=== PATIENT | male | born 1945 | race Caucasian/White ===

== ENCOUNTER 2016-10-26 15:57 | Emergency (ER) | payer OTHER, MEDICARE ==
[~2016-10-26] VITALS: Ht 165.1 cm; Wt 96.2 kg
[~2016-10-26 15:57] MED LIST: AMIODARONE HCL200 M1 PO; AMLODIPINE BESY10 M1 PO; AMOX-CLAV 875-1 EACH PO; ATORVASTATIN CA20 M1 PO; AZITHROMYCIN250 M1 PO; FINASTERIDE5 M1 PO; FUROSEMIDE20 M1 PO; LEVOTHYROXINE25 MCG PO; METFORMIN HCL850 M1 PO; MODAFINIL200 M1 PO; PERCOCET 7.5-31 EACH PO; TAMSULOSIN HCL0.4 M1 PO; VALSARTAN160 M1 PO; WARFARIN SODIUM2 M1 PO
--- NOTE | 2016-10-26 17:39 | ED GENERAL ADULT ---
History of Present Illness General Chief Complaint: General Adult Stated Complaint: SIB DR BEST FOR CONSTIPATION Source: patient Exam Limitations: no limitations Vital Signs & Intake/Output Vital Signs & Intake/Output Vital Signs Date Time Temp Pulse Resp B/P Pulse O2 O2 Flow FiO2 Ox Delivery Rate 10/26 2037 96.5 86 18 122/70 97 Room Air 10/26 1941 99.5 100 18 122/60 10/26 1848 99.5 100 18 122/60 97 Room Air 10/26 1655 99.7 80 18 154/95 98 Room Air Allergies Coded Allergies: Iodinated Contrast Media - Oral and (IODINATED CONTRAST MEDIA - IV DYE) ( ANAPHYLAXIS 03/29/16) Reconcile Medications Amlodipine Besylate 10 MG TABLET 1 TAB PO DAILY BP (Reported) Amoxicillin/Potassium Clav (Augmentin 875-125 Tablet) 875 MG-125 MG TABLET 1 TAB PO BID DIVERTICULITIIS Atorvastatin Calcium 20 MG TABLET 1 TAB PO DAILY CHOLESTEROL (Reported) Cholecalciferol (Vitamin D3) (Vitamin D3) 2,000 UNIT CAPSULE 1 CAP PO DAILY SUPPLEMENT (Reported) Finasteride 5 MG TABLET 1 TAB PO DAILY PROSTATE (Reported) Furosemide 20 MG TABLET 1 TAB PO DAILY DIURETIC (Reported) Levothyroxine Sodium 25 MCG TABLET 1.5 TAB PO DAILY THYROID (Reported) Metformin HCl 850 MG TABLET 1 TAB PO BID DIABETES (Reported) Metoprolol Tartrate 50 MG TABLET 1 TAB PO BID HTN/AFIB (Reported) Modafinil 200 MG TABLET 1 TAB PO BID ALERTNESS (Reported) Oxycodone HCl/Acetaminophen (Percocet 7.5-325 MG Tablet) 1 EACH TABLET 1 TAB PO 4 TIMES/DAY PRN BACK PAIN AND RA (Reported) Pioglitazone HCl 30 MG TABLET 1 TAB PO DAILY DM (Reported) Prednisone 10 MG TABLET 4 TAB PO DAILY INFLAMMATION (Reported) Tamsulosin HCl 0.4 MG CAP.ER.24H 1 CAP PO DAILY PROSTATE (Reported) Tolterodine Tartrate (Detrol LA) 4 MG CAP.ER.24H 1 CAP PO DAILY BLADDER ( Reported) Valsartan 160 MG TABLET 1 TAB PO DAILY BP (Reported) Warfarin Sodium 2 MG TABLET 2 TAB PO DAILY BLOOD THINNER (Reported) Triage Note: PT TO TRIAGE SENT BY FOR CONSTIPATION x5DAYS. PT C/O ABD PAIN 8/10, ABD DISTENTION, MILD NAUSEA. PT DENIES VOMITING, DENIES CHEST PAIN,SOB. VSS. Triage Nurses Notes Reviewed? yes Onset: Gradual Duration: day(s): (5) Timing: remote history Injury Environment: home Severity: moderate Severity Numbers: 7 No Modifying Factors: none HPI: PT is a 70-year-old male presenting to the emergency department with chief complaint of constipation 5 days. He reports that he has not had a full bowel movement 5 days. There has been some adjustments to his medications and he thinks that is what is causing his constipation. He's been able to move his bowels very slightly, they have been small and firm and he's had to strain. Denies any vomiting but reports nauseousness this morning. Denies fevers or chills. No difficulties urinating. He does report pressure in his lower abdomen. Denies any blood in the stool. He called his physician who told him, him to the emergency department for evaluation. Denies any shortness of breath or chest pain. No palpitations. He tried milk of magnesia [id number] which did not help. (JULIA MAXWELL) Past History Travel History Traveled to [place] past 21 day No Medical History Any Pertinent Medical History? 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 No (JULIA MAXWELL) Review of Systems Review of Systems Constitutional: Reports: no symptoms. Comments Review of systems: See HPI, All other systems negative. Constitutional, no chills fever or weight loss HEENT: No visual changes no sore throat no congestion Cardiovascular: No chest pain ,palpitation Skin, no jaundice no rashes Respiratory: No dyspnea cough sputum or hemoptysis GI: no vomiting : No dysuria No hematuria Muscle skeletal: no back pain, no neck pain, Neurologic: No numbness no confusion Psych: No stress anxiety or depression,. Heme/endocrine: No bruising no bleeding Immunology: No splenectomy or history of AIDS (JULIA MAXWELL) Physical Exam Physical Exam General Appearance: well developed/nourished, no apparent distress, alert, awake , comfortable Comments: Well-developed well-nourished person in no acute distress HEENT: Pupils equally round and reactive to light and accommodation. Nose is atraumatic. Neck: Normal inspection Back: Nontender, no CVA tenderness. Cardiovascular: irRegular rate and rhythms no murmurs rubs or gallops, normal JVP Respiratory: Chest nontender. No respiratory distress.breath sounds clear to auscultation bilaterally Abdomen: Soft, mildly tender to palpation in lower quadrants bilaterally, nondistended, no appreciable organomegaly. Normal bowel sounds. No ascites. No rebound or guarding. Extremity: No edema Neuro: Alert oriented x3 Skin: No appreciable rash on exposed skin, skin is warm and dry. Psych: Mood and affect is normal, memory and judgment is normal. Core Measures ACS in differential dx? No CVA/TIA Diagnosis: No Severe Sepsis Present: No Septic Shock Present: No (JULIA MAXWELL) Progress Differential Diagnoses I considered the following diagnoses in my evaluation of the patient: Plan of Care: Orders Procedure Date/time Status LACTIC ACID 10/26 1850 Complete COMPREHENSIVE METABOLIC PANEL 10/26 1850 Complete CBC WITHOUT DIFFERENTIAL 10/26 1850 Complete EKG 10/26 1850 Active Enema 10/26 1800 Active Laboratory Tests 10/26/16 191: Anion Gap 8, Estimated GFR 50 L, BUN/Creatinine Ratio 21.4, Glucose 116 H, Lactic Acid 1.4, Calcium 9.1, Total Bilirubin 0.6, AST 18, ALT 32, Alkaline Phosphatase 97, Total Protein 6.6, Albumin 3.9, Globulin 2.7, Albumin/Globulin Ratio 1.4, CBC w Diff NO MAN DIFF REQ, RBC 3.93 L, MCV 83.8, MCH 27.4, RDW 18.1 H, MPV 5.9 L, Gran % 72.3, Lymphocytes % 16.2 L, Monocytes % 9.1, Eosinophils % 2.0, Basophils % 0.4, Absolute Granulocytes 9.0 H, Absolute Lymphocytes 2.0, Absolute Monocytes 1.1 H, Absolute Eosinophils 0.2, Absolute Basophils 0, PUBS MCHC 32.7 L Diagnostic Imaging: Viewed by Me: Radiology Read, CT Scan. Discussed w/RAD: Radiology Read, CT Scan. Radiology Impression: PATIENT: ADDI DE GUZMAN PRESENT AGE: 70 PATIENT ACCOUNT NO: [id number] : 46 LOCATION: [facility] ([place]) ORDERING PHYSICIAN: JULIA DURHAM SERVICE DATE: 10/26/16 EXAM TYPE: CAT - CT ABD & PELVIS W/O IV CONTRAS EXAMINATION: CT ABDOMEN AND PELVIS WITHOUT CONTRAST CLINICAL INFORMATION: Abdominal pain and distention. COMPARISON: CT chest without contrast 07/17/2016. TECHNIQUE: Multidetector volumetric imaging was performed from the superior aspect of the liver through the pubic symphysis. Sagittal and coronal reformatted images were obtained on the technologist's workstation. DLP: 738 mGy-cm FINDINGS: Limited evaluation of the solid abdominal viscera in the absence of intravenous contrast. LUNG BASES: Evaluation of the included lung bases demonstrates near complete resolution of previously identified consolidative and groundglass opacities within the bilateral lung bases. No pleural or pericardial effusions are identified. There are scattered coronary artery calcifications. LIVER, GALLBLADDER, AND BILIARY TREE: The liver is normal in size, shape, and attenuation. No focal hepatic lesion or biliary ductal dilatation is present. There are several radiopaque stones layering dependently within the gallbladder lumen, without secondary signs of acute cholecystitis. The gallbladder is physiologically distended without gallbladder wall thickening or pericholecystic inflammatory changes. PANCREAS: Unremarkable. SPLEEN: Unremarkable. ADRENAL GLANDS: Unremarkable. KIDNEYS AND URETERS: The kidneys are normal in size, shape and contour. No contour deforming renal lesions are identified. No renal or ureteral stones are identified and there is no hydroureteronephrosis of either kidney or renal collecting system. Nonspecific mild bilateral perinephric stranding. BLADDER: Unremarkable. GASTROINTESTINAL TRACT: Evaluation of the gastrointestinal system is notable for scattered colonic diverticulosis, most extensive along the descending and rectosigmoid colon. Of note, there is diffuse circumferential thickening and pericolonic inflammatory changes surrounding a segment of the sigmoid colon, spanning at least 7 cm in length within the left lower quadrant of the abdomen. This constellation of findings is indicative of an acute sigmoid diverticulitis. There are no extraluminal foci of air to suggest perforation. No perisigmoid fluid collections are identified. Abdominal and pelvic bowel loops are normal in caliber, without evidence of obstruction or ileus. Normal-appearing appendix within the right lower quadrant of the abdomen. Liquid matter within the cecum and ascending colon is nonspecific but could reflect diarrhea and the appropriate clinical setting. ABDOMINAL WALL: No significant hernia is appreciated. LYMPH NODES: No significant abdominal or pelvic adenopathy. VASCULAR: Scattered atherosclerosis of the abdominal aorta and its branching vessels, without aneurysmal dilatation. Limited evaluation for vascular patency given lack of intravenous contrast. PELVIC VISCERA: Unremarkable. OSSEOUS STRUCTURES: No acute osseous abnormality. No visible destructive osseous lesions. Mild to moderate degenerative changes of the imaged thoracolumbar spine. Grade 1 anterolisthesis of L4 on L5. IMPRESSION: 1. Scattered colonic diverticulosis, most extensive along the descending and rectosigmoid colon. Diffuse circumferential thickening and pericolonic inflammatory changes surrounding a segment of the sigmoid colon, spanning at least 7 cm in length within the left lower quadrant of the abdomen, indicative of an acute sigmoid diverticulitis. No extraluminal foci of air to suggest perforation. No perisigmoid fluid collections are identified. 2. Cholelithiasis, without secondary signs of acute cholecystitis. 3. Near complete resolution of previously identified consolidative and groundglass opacities within the bilateral lung bases, predominantly peribronchial vascular and peripheral in distribution. CXR Impression: PATIENT: ADDI DE GUZMAN PRESENT AGE: 70 PATIENT ACCOUNT NO: [id number] : 46 LOCATION: [facility] ([place] ORDERING PHYSICIAN: JULIA DURHAM SERVICE DATE: 10/26/16 EXAM TYPE: RAD - XRY-ABDOMEN -MULTIPLE VIEWS EXAMINATION: XR ABDOMEN MULTIPLE VIEWS CLINICAL INDICATION: Abdominal pain. No bowel movements and 5 days. COMPARISON: None. TECHNIQUE: Supine and erect views of the abdomen and pelvis. FINDINGS: Nonspecific bowel gas pattern, without findings indicative of obstruction or ileus. No significant retained stool throughout the colon. No abnormal soft tissue calcifications. No air-fluid levels. The visualized lung bases are clear. No free air beneath bilateral hemidiaphragms. IMPRESSION: Nonspecific bowel gas pattern, without findings indicative of obstruction or ileus. No significant retained stool throughout the colon. Initial ED EKG: AFIB (80 BPM) Comments: Declines pain medication on arrival. Patient informed of all lab work results and imaging study results. Patient has diverticulitis. Patient will be treated with Augmentin secondary to medication interaction with Flagyl and Cipro. He'll follow-up with gastroenterology. Patient nontoxic. Discussed with Dr. Mireles 09 he agrees with plan. Patient is afebrile. Patient informed to increase fluid intake secondary to slight bump in kidney function. (MARCO ANTONIO DURHAM,JULIA) Departure Departure Time of Disposition: 2016 Disposition: HOME OR SELF CARE Condition: Stable Clinical Impression Primary Impression: Diverticulitis Referrals: QUENTIN NIX,LOPEZ Dawn (PCP/Family) Additional Instructions: Follow-up with gastroenterology call to make an appointment. Take Cipro and Flagyl as prescribed. 3 follow diverticulitis diet guidelines. Low residue diet. Attached is here CAT scan report. Increase fluids. Return for worsening symptoms or concerns. PATIENT: ADDI DE GUZMAN PRESENT AGE: 70 PATIENT ACCOUNT NO: [id number] : 46 LOCATION: [facility] ([place]) ORDERING PHYSICIAN: JULIA DURHAM SERVICE DATE: 10/26/16 EXAM TYPE: CAT - CT ABD & PELVIS W/O IV CONTRAS EXAMINATION: CT ABDOMEN AND PELVIS WITHOUT CONTRAST CLINICAL INFORMATION: Abdominal pain and distention. COMPARISON: CT chest without contrast 07/17/2016. TECHNIQUE: Multidetector volumetric imaging was performed from the superior aspect of the liver through the pubic symphysis. Sagittal and coronal reformatted images were obtained on the technologist's workstation. DLP: 738 mGy-cm FINDINGS: Limited evaluation of the solid abdominal viscera in the absence of intravenous contrast. LUNG BASES: Evaluation of the included lung bases demonstrates near complete resolution of previously identified consolidative and groundglass opacities within the bilateral lung bases. No pleural or pericardial effusions are identified. There are scattered coronary artery calcifications. LIVER, GALLBLADDER, AND BILIARY TREE: The liver is normal in size, shape, and attenuation. No focal hepatic lesion or biliary ductal dilatation is present. There are several radiopaque stones layering dependently within the gallbladder lumen, without secondary signs of acute cholecystitis. The gallbladder is physiologically distended without gallbladder wall thickening or pericholecystic inflammatory changes. PANCREAS: Unremarkable. SPLEEN: Unremarkable. ADRENAL GLANDS: Unremarkable. KIDNEYS AND URETERS: The kidneys are normal in size, shape and contour. No contour deforming renal lesions are identified. No renal or ureteral stones are identified and there is no hydroureteronephrosis of either kidney or renal collecting system. Nonspecific mild bilateral perinephric stranding. BLADDER: Unremarkable. GASTROINTESTINAL TRACT: Evaluation of the gastrointestinal system is notable for scattered colonic diverticulosis, most extensive along the descending and rectosigmoid colon. Of note, there is diffuse circumferential thickening and pericolonic inflammatory changes surrounding a segment of the sigmoid colon, spanning at least 7 cm in length within the left lower quadrant of the abdomen. This constellation of findings is indicative of an acute sigmoid diverticulitis. There are no extraluminal foci of air to suggest perforation. No perisigmoid fluid collections are identified. Abdominal and pelvic bowel loops are normal in caliber, without evidence of obstruction or ileus. Normal-appearing appendix within the right lower quadrant of the abdomen. Liquid matter within the cecum and ascending colon is nonspecific but could reflect diarrhea and the appropriate clinical setting. ABDOMINAL WALL: No significant hernia is appreciated. LYMPH NODES: No significant abdominal or pelvic adenopathy. VASCULAR: Scattered atherosclerosis of the abdominal aorta and its branching vessels, without aneurysmal dilatation. Limited evaluation for vascular patency given lack of intravenous contrast. PELVIC VISCERA: Unremarkable. OSSEOUS STRUCTURES: No acute osseous abnormality. No visible destructive osseous lesions. Mild to moderate degenerative changes of the imaged thoracolumbar spine. Grade 1 anterolisthesis of L4 on L5. IMPRESSION: 1. Scattered colonic diverticulosis, most extensive along the descending and rectosigmoid colon. Diffuse circumferential thickening and pericolonic inflammatory changes surrounding a segment of the sigmoid colon, spanning at least 7 cm in length within the left lower quadrant of the abdomen, indicative of an acute sigmoid diverticulitis. No extraluminal foci of air to suggest perforation. No perisigmoid fluid collections are identified. 2. Cholelithiasis, without secondary signs of acute cholecystitis. 3. Near complete resolution of previously identified consolidative and groundglass opacities within the bilateral lung bases, predominantly peribronchial vascular and peripheral in distribution. Departure Forms: Customer Survey General Discharge Information Prescriptions: Current Visit Scripts Amoxicillin/Potassium Clav (Augmentin 875-125 Tablet) 1 TAB PO BID #20 TAB (JULIA MAXWELL) PA/WET CLEANER MACHINE Co-Sign Statement Statement: ED Attending supervision documentation- x I saw and evaluated the patient. I have also reviewed all the pertinent lab results and diagnostic results. I agree with the findings and the plan of care as documented in the PA's/WET CLEANER MACHINE's documentation. [] I have reviewed the ED Record and agree with the PA's/WET CLEANER MACHINE's documentation. [] Additions or exceptions (if any) to the PAs/WET CLEANER MACHINE's note and plan are summarized below: [] (MELYSSA NIX,CECIL) Critical Care Note Critical Care Note Critical Care Time: non-applicable (MARCO ANTONIO DURHAM,JULIA)
--- NOTE | 2016-10-26 18:25 | RADIOLOGY REPORT ---
EXAMINATION: XR ABDOMEN MULTIPLE VIEWS CLINICAL INDICATION: Abdominal pain. No bowel movements and 5 days. COMPARISON: None. TECHNIQUE: Supine and erect views of the abdomen and pelvis. FINDINGS: Nonspecific bowel gas pattern, without findings indicative of obstruction or ileus. No significant retained stool throughout the colon. No abnormal soft tissue calcifications. No air-fluid levels. The visualized lung bases are clear. No free air beneath bilateral hemidiaphragms. IMPRESSION: Nonspecific bowel gas pattern, without findings indicative of obstruction or ileus. No significant retained stool throughout the colon.
[2016-10-26] MEDS ORDERED: VITAMIN D32000 UNIT PO (19:10)
[2016-10-26] MEDS ORDERED: METOPROLOL TART50 M1 PO (19:10)
[2016-10-26] MEDS ORDERED: PIOGLITAZONE HC30 M1 PO (19:11)
[2016-10-26] MEDS ORDERED: PREDNISONE10 M2 PO (19:13)
[2016-10-26] MEDS ORDERED: DETROL LA4 M1 PO (19:13)
[2016-10-26 19:20] LABS: ABSOLUTE BASOPHIL COUNT 0 /CUMM (0.0-0.2); ABSOLUTE EOSINOPHIL COUNT 0.2 /CUMM (0.0-0.7); ABSOLUTE MONOCYTE COUNT 1.1 /CUMM (0.10-0.60); BASOPHIL % 0.4 % (0.0-2.0); GRANULOCYTE % 72.3 % (42.2-75.2); HEMATOCRIT 32.9 % (42-52); MEAN CORPUSCULAR HGB 27.4 PG (27.0-31.0); MEAN CORPUSCULAR HGB CONC 32.7 G/DL (33.0-37.0); MEAN CORPUSCULAR VOLUME 83.8 FL (80.0-94.0); MEAN PLATELET VOLUME 5.9 FL (7.4-10.4); PLATELET COUNT 313 /CUMM (130-400); RBC DISTRIBUTION WIDTH 18.1 % (11.5-14.5); RED BLOOD CELL CT 3.93 /CUMM (4.70-6.10); WHITE BLOOD CELL COUNT 12.4 /CUMM (4.8-10.8)
--- NOTE | 2016-10-26 19:49 | CT SCAN REPORT ---
EXAMINATION: CT ABDOMEN AND PELVIS WITHOUT CONTRAST CLINICAL INFORMATION: Abdominal pain and distention. COMPARISON: CT chest without contrast 07/17/2016. TECHNIQUE: Multidetector volumetric imaging was performed from the superior aspect of the liver through the pubic symphysis. Sagittal and coronal reformatted images were obtained on the technologist's workstation. DLP: 738 mGy-cm FINDINGS: Limited evaluation of the solid abdominal viscera in the absence of intravenous contrast. LUNG BASES: Evaluation of the included lung bases demonstrates near complete resolution of previously identified consolidative and groundglass opacities within the bilateral lung bases. No pleural or pericardial effusions are identified. There are scattered coronary artery calcifications. LIVER, GALLBLADDER, AND BILIARY TREE: The liver is normal in size, shape, and attenuation. No focal hepatic lesion or biliary ductal dilatation is present. There are several radiopaque stones layering dependently within the gallbladder lumen, without secondary signs of acute cholecystitis. The gallbladder is physiologically distended without gallbladder wall thickening or pericholecystic inflammatory changes. PANCREAS: Unremarkable. SPLEEN: Unremarkable. ADRENAL GLANDS: Unremarkable. KIDNEYS AND URETERS: The kidneys are normal in size, shape and contour. No contour deforming renal lesions are identified. No renal or ureteral stones are identified and there is no hydroureteronephrosis of either kidney or renal collecting system. Nonspecific mild bilateral perinephric stranding. BLADDER: Unremarkable. GASTROINTESTINAL TRACT: Evaluation of the gastrointestinal system is notable for scattered colonic diverticulosis, most extensive along the descending and rectosigmoid colon. Of note, there is diffuse circumferential thickening and pericolonic inflammatory changes surrounding a segment of the sigmoid colon, spanning at least 7 cm in length within the left lower quadrant of the abdomen. This constellation of findings is indicative of an acute sigmoid diverticulitis. There are no extraluminal foci of air to suggest perforation. No perisigmoid fluid collections are identified. Abdominal and pelvic bowel loops are normal in caliber, without evidence of obstruction or ileus. Normal-appearing appendix within the right lower quadrant of the abdomen. Liquid matter within the cecum and ascending colon is nonspecific but could reflect diarrhea and the appropriate clinical setting. ABDOMINAL WALL: No significant hernia is appreciated. LYMPH NODES: No significant abdominal or pelvic adenopathy. VASCULAR: Scattered atherosclerosis of the abdominal aorta and its branching vessels, without aneurysmal dilatation. Limited evaluation for vascular patency given lack of intravenous contrast. PELVIC VISCERA: Unremarkable. OSSEOUS STRUCTURES: No acute osseous abnormality. No visible destructive osseous lesions. Mild to moderate degenerative changes of the imaged thoracolumbar spine. Grade 1 anterolisthesis of L4 on L5. IMPRESSION: 1. Scattered colonic diverticulosis, most extensive along the descending and rectosigmoid colon. Diffuse circumferential thickening and pericolonic inflammatory changes surrounding a segment of the sigmoid colon, spanning at least 7 cm in length within the left lower quadrant of the abdomen, indicative of an acute sigmoid diverticulitis. No extraluminal foci of air to suggest perforation. No perisigmoid fluid collections are identified. 2. Cholelithiasis, without secondary signs of acute cholecystitis. 3. Near complete resolution of previously identified consolidative and groundglass opacities within the bilateral lung bases, predominantly peribronchial vascular and peripheral in distribution.
[2016-10-26] MEDS ORDERED: AUGMENTIN 875-1 EACH PO (20:16)
[2016-10-26 20:38] VITALS: BP 122/70
== END 2016-10-26 20:39 ==
LOC: ERH 15:57
PROVIDERS: Physician Assistant
DX: K57.92 Diverticulitis of intestine, part unspecified, without perforation or abscess without bleeding (principal)
CPT/HCPCS: 74020; 74176; 93005; 93010; J3490